=== PATIENT | male | born 1940 | race Caucasian/White ===

== ENCOUNTER 2017-03-20 19:48 | Emergency (ER) | payer MEDICARE, BC ==
[~2017-03-20] VITALS: Ht 165.1 cm; Wt 59.0 kg
[2017-03-20 19:51] VITALS: Ht 165.1 cm; Wt 59.0 kg
--- NOTE | 2017-03-20 23:16 | RADRPT ---
PROCEDURE: XR ribs . CLINICAL INDICATION: Left rib pain status post fall. TECHNIQUE: AP and oblique views of the left ribs were obtained. COMPARISON: None FINDINGS: The bone mineralization is normal. There is no acute fracture or subluxation. Likely cardiomegaly with atherosclerotic calcifications in the thoracic aorta. No evident pneumotho rax in the left lung. IMPRESSION: No acute fracture. RPTAT: [facility] Physician Lalita Date Time Electronically viewed and signed by Physician Lalita on 03/20/2017 23:16 RS/
--- NOTE | 2017-03-20 23:17 | RADRPT ---
AMENDMENT: 03/20/2017 11:24:24 PM Ron Bowens MD ADDENDUM: Correction: IMPRESSION: No acute fracture. PROCEDURE: X-ray thoracic spine CLINICAL INDICATION: Back pain status post injury TECHNIQUE: 2 views thoracic spine COMPARISON: None FINDINGS: No acute fracture dislocation. Atherosclerotic calcifications in the thoracic aorta. Soft tissues are otherwise unremarkable. IMPRESSION: Acute fracture. RPTAT: [facility] Jimy Bowesn Physician Date Time Electronically viewed and signed by Jimy Bowens Physician on 03/20/2017 23:24 RS/
--- NOTE | 2017-03-20 23:18 | RADRPT ---
PROCEDURE: X-ray lumbar spine. CLINICAL INDICATION: Back pain status post fall. TECHNIQUE: 2 views of the lumbar spine. COMPARISON: None. FINDINGS: No acute fracture or dislocation. Posterior facet degenerative changes at the L5-S1 level. Small a nterior endplate osteophytes at multiple levels in the lumbar spine and in the partially visualized lower thoracic spine, greater in the thoracic spine. Atherosclerotic calcifications in the abdomina l aorta. Soft tissues otherwise unremarkable. IMPRESSION: No acute fracture. RPTAT: [facility] Physician Lalita Date Time Electronically viewed and signed by Jimy Bowens Physician on 03/20/2017 23:18 RS/
[2017-03-20] MEDS ORDERED: IBUP400T22 PO (23:27)
[2017-03-20 23:45] VITALS: BP 142/66; PULSE 77; RESP 16
--- NOTE | 2017-03-21 00:29 | ERD ---
ER Documentation Chief Complaint Date/Time DATE: 03/21/17 TIME: 00:07 Chief Complaint back pain sp slip and fall a few days ago, ambulatory steady gait HPI Patient is a 76-year-old male with a past medical history of hypertension who presents emergency department with back pain status post a slip and fall injury 3 days ago. Patient is primarily Tajik speaking. Patient's son is present for translation. Patient's son states the patient was going down the stairs when he slipped on the last step and hit his back on the stair. Patient also reports into his left ribs. Patient reports taking Advil for his pain. Patient denies any dizziness or presyncopal feelings prior to slip and fall injury. Patient is able to ambulate without any difficulty. Patient denies any saddle anesthesia, urinary incontinence, stool incontinence, night pain, fever or chills. Patient denies any chest pain, shortness of breath, left upper extremity pain, headache, blurry vision, nausea, vomiting or loss consciousness. Patient reports taking his blood pressure medication 2 hours prior to arrival. ROS All systems reviewed and are negative except as per history of present illness. Medications Home Meds Active Scripts Ibuprofen* (Motrin*) 400 Mg Tab, 400 MG PO Q6, #30 TAB Prov:JAKE MCCARTHY PA-C 03/20/17 Allergies Allergies: Coded Allergies: No Known Allergy (Unverified , 03/20/17) PMhx/Soc History of Surgery: No Anesthesia Reaction: No Hx Neurological Disorder: No Hx Respiratory Disorders: No Hx Cardiac Disorders: No Hx Psychiatric Problems: No Hx Miscellaneous Medical Probl: Yes (htn) Hx Alcohol Use: Yes Hx Substance Use: No Hx Tobacco Use: Yes Smoking Status: Current every day smoker FmHx Family History: No diabetes Physical Exam Vitals Vital Signs Date Time Temp Pulse Resp B/P Pulse Ox O2 Delivery O2 Flow Rate FiO2 03/20/17 23:45 77 16 142/66 96 Room Air 03/20/17 19:51 98.7 80 18 193/83 97 Physical Exam GENERAL: Well-developed, well-nourished male. Appears in no acute distress. HEAD: Normocephalic, atraumatic. EYES: Pupils are equally reactive bilaterally. EOMs grossly intact. No conjunctival erythema. ENT: Moist mucous membranes. No uvula deviation. No kissing tonsils. NECK: Supple. No meningismus. Normal range of motion of the neck. No cervical line tenderness. CHEST: Tender to palpation of the left ribs, mid ribs LUNG: Clear to auscultation bilaterally. No rhonchi, wheezing, rales or coarse breath sounds. HEART: Regular rate and rhythm. No murmurs, rubs or gallops. ABDOMEN: No scars, ecchymosis or rashes noted. Soft, nontender, and nondistended. Positive bowel sounds in all four quadrants. No rebound tenderness , no guarding. (-) McBurney's point tenderness. No CVA tenderness. BACK: No midline tenderness. Tender to palpation of bilateral lumbar paraspinal muscles. EXTREMITIES: Equal pulses bilaterally. No peripheral clubbing, cyanosis or edema. No unilateral leg swelling. NEUROLOGIC: Alert and oriented. Moving all four extremities without any difficulty. Normal speech. Steady gait. SKIN: Normal color. Warm and dry. No rashes or lesions. Procedures/MDM ED COURSE: The patient was stable throughout ED course. I kept the patient and/or family informed of laboratory and diagnostic imaging results throughout the ED course. . DIAGNOSTIC IMAGING: Read by radiologist. Patient: ZOIE HARVEY : 1940 Age: 76 Sex: M [id number] [id number] DOS: 03/20/172019 Ordering MD: JAKE MCCARTHY PA-C Location: [facility] Room/Bed: PROCEDURE: X-ray lumbar spine. CLINICAL INDICATION: Back pain status post fall. TECHNIQUE: 2 views of the lumbar spine. COMPARISON: None. FINDINGS: No acute fracture or dislocation. Posterior facet degenerative changes at the L5-S1 level. Small anterior endplate osteophytes at multiple levels in the lumbar spine and in the partially visualized lower thoracic spine, greater in the thoracic spine. Atherosclerotic calcifications in the abdominal aorta. Soft tissues otherwise unremarkable. IMPRESSION: No acute fracture. RPTAT: [facility] Physician Lalita Date Time Electronically viewed and signed by Physician Lalita on 03/20/2017 23:18 RS/ CC: JAKE MCCARTHY PA-C Patient: ZOIE HARVEY : 1940 Age: 76 Sex: M MR #: [id number] DOS: 03/20/172019 Ordering MD: JAKE MCCARTHY PA-C Location: [facility] Room/Bed: PROCEDURE: XR ribs . CLINICAL INDICATION: Left rib pain status post fall. TECHNIQUE: AP and oblique views of the left ribs were obtained. COMPARISON: None FINDINGS: The bone mineralization is normal. There is no acute fracture or subluxation. Likely cardiomegaly with atherosclerotic calcifications in the thoracic aorta. No evident pneumothorax in the left lung. IMPRESSION: No acute fracture. RPTAT: [facility] Physician Lalita Date Time Electronically viewed and signed by Physician Lalita on 03/20/2017 23:16 RS/ CC: JAKE MCCARTHY PA-C DIAGNOSTIC IMAGING REPORT Patient: ZOIE HARVEY : 1940 Age: 76 Sex: M MR #: [id number] DOS: 03/20/172019 Ordering MD: JAKE MCCARTHY PA-C Location: [facility] Room/Bed: AMENDMENT: 03/20/2017 11:24:24 PM Ron Bowens MD ADDENDUM: Correction: IMPRESSION: No acute fracture. PROCEDURE: X-ray thoracic spine CLINICAL INDICATION: Back pain status post injury TECHNIQUE: 2 views thoracic spine COMPARISON: None FINDINGS: No acute fracture dislocation. Atherosclerotic calcifications in the thoracic aorta. Soft tissues are otherwise unremarkable. IMPRESSION: Acute fracture. RPTAT: [facility] Physician Lalita Date Time Electronically viewed and signed by Physician Lalita on 03/20/2017 23:24 RS/ CC: JAKE MCCARTHY PA-C PROCEDURES: None. MEDICATIONS GIVEN: Patient was offered analgesic pain medication however he declined. MEDICAL DECISION MAKING: This is a 76-year-old male who presents with left-sided rib pain and lower back pain status post fall injury. Vital signs were reviewed. Patient was afebrile. Patient denied any saddle anesthesia, urinary incontinence, bowel incontinence, night pain. Left rib series was negative. Lumbar series is negative. Thoracic series is negative. Given these findings, the patient's presentation is most consistent with lumbar strain and left rib contusion.. I have a much lower clinical concern for cauda equine syndrome, spinal fractures, epidural abscess, spinal metastases, osteomyelitis, aortic dissection, ruptured or leaking AA, DJD, sciatica, pyelonephritis or nephrolithiasis. Low suspicion for rib fracture, pneumothorax. PRESCRIPTIONS: Ibuprofen DISCHARGE: At this time, patient is stable for discharge and outpatient management. Heat advised. have instructed the patient to follow-up with his/her primary care physician in 1-2 days. I have discussed with the patient the possibility of needing to see an senior engineering specialist for further workup and imaging if the pain persists. I have instructed the patient to promptly return to the ER for any new or worsening symptoms including increased pain, swelling, warmth, urinary incontinence, stool incontinence, weakness or numbness. The patient and/ or family expressed understanding of and agreement with this plan. All questions were answered. Home care instructions were provided. Patient's blood pressure was elevated (>120/80) but appears stable without evidence of hypertensive emergency, hypertensive urgency or end-organ failure. I had discussion with the patient about the risks of hypertension. I have advised the patient to follow up with his/her primary care physician for outpatient monitoring and treatment for hypertension in 2-3 days. I have instructed the patient to return to the ER for any new or worsening symptoms including chest pain, shortness of breath, headache, blurred vision, confusion, nausea, vomiting or LOC. Departure Diagnosis: Primary Impression: Lower back pain Chronicity: unspecified Back pain laterality: unspecified Sciatica presence : unspecified whether sciatica present Qualified Code: M54.5 - Low back pain , unspecified back pain laterality, unspecified chronicity, with sciatica presence unspecified Additional Impression: Contusion of rib on left side Encounter type: initial encounter Qualified Code: S20.212A - Contusion of rib on left side, initial encounter Condition: Stable Patient Instructions: Back Pain (Acute Or Chronic), Rib Contusion Referrals: [facility] Additional Instructions: Call your primary care doctor TOMORROW for an appointment during the next 1-2 days.See the doctor sooner or return here if your condition worsens before your appointment time. Take blood pressure medication upon returning home. JAKE MCCARTHY PA-C March 21, 2017 00:17
== END 2017-03-20 23:46 | disposition home or self-care (01) ==
LOC: FTE 19:48
DX: S39.92XA Unspecified injury of lower back, initial encounter (principal); S20.212A Contusion of left front wall of thorax, initial encounter; I10 Essential (primary) hypertension; F17.210 Nicotine dependence, cigarettes, uncomplicated; W10.9XXA Fall (on) (from) unspecified stairs and steps, initial encounter; Y92.9 Unspecified place or not applicable
CPT/HCPCS: 71100; 72072; 72100

== ENCOUNTER → 2018-02-21 | Outpatient (CLI) | END | disposition home or self-care (01) ==

== ENCOUNTER 2018-05-11 06:49 | Day surgery (SDC) | END 2018-05-11 14:13 | disposition home or self-care (01) ==